=== PATIENT | male | born 1950 | race Caucasian/White ===

== ENCOUNTER → 2016-12-31 | Outpatient (CLI) | payer BC ==
[~2016-12-31] MED LIST: TORADOL10 MG PO; VICODIN 5/500 505 MG PO
== END | disposition home or self-care (01) ==
LOC: LAB 11:26
DX: E11.9 Type 2 diabetes mellitus without complications (principal)

== ENCOUNTER → 2017-05-11 | Outpatient (CLI) | payer BC, MEDICARE | END | disposition home or self-care (01) | LOC: LAB 09:30 | DX: E11.9 Type 2 diabetes mellitus without complications (principal) ==

== ENCOUNTER → 2017-09-30 | Outpatient (CLI) | payer BC ==
[2017-09-30 11:21] LABS: BASO # 0.1 10*3/uL (0.0-0.1); BASO % 0.6 % (0.0-1.0); EOS # 0.1 10*3/uL (0.0-0.4); EOS % 0.7 % (1.0-4.0); HEMATOCRIT 46.1 % (42.0-52.0); HEMOGLOBIN 15.7 g/dl (14.0-18.0); LYMPH # 3.2 10*3/uL (1.3-4.4); MEAN CELL VOLUME 92.8 fl (80.0-94.0); MEAN CORPUSCULAR HGB 31.6 pg (27.0-31.0); MEAN CORPUSCULAR HGB CONC 34.1 g/dl (33.0-37.0); MEAN PLATELET VOLUME 10.4 fl (9.6-12.3); MONO # 0.8 10*3/uL (0.1-1.0); MONO % 8.4 % (3.0-9.0); NEUT # 4.9 10*3/uL (2.3-7.9); NEUT % 54.1 % (47.0-73.0); PLATELET COUNT AUTOMATED 195 10*3/uL (130-400); RED BLOOD COUNT 4.97 10*6/uL (4.50-5.90); RED CELL DISTRI WIDTH 12.7 % (0-14.5)
[2017-09-30 11:36] LABS: ALBUMIN 3.8 gm/dl (3.1-4.5); ALKALINE PHOSPHATASE 75 U/L (45-117); BUN 15 mg/dl (7-24); CHLORIDE 101 mmol/L (98-107); CHOLESTEROL 209 mg/dL (<200); CREATININE 1.07 mg/dL (0.70-1.30); HDL CHOLESTEROL 46 mg/dl (40-60); LDL CHOLESTEROL 133 mg/dL (9-159); POTASSIUM 3.8 mmol/L (3.5-5.1); SGOT/AST 26 IU/L (3-35); SGPT/ALT 50 U/L (12-78); SODIUM 139 mmol/L (136-145); TOTAL PROTEIN 7.9 gm/dL (6.4-8.2); TRIGLYCERIDES 150 mg/dl (<150); VLDL CHOLESTEROL 30 mg/dL (6-40)
[2017-09-30 11:37] LABS: FREE T4 1.04 ng/dl (0.76-1.46)
[2017-10-02 10:07] LABS: MICRO ALBUMIN/CRE RATIO 11.7 (0.0-30.0)
== END | disposition home or self-care (01) ==
LOC: LAB 10:40
PROVIDERS: Internal Medicine
DX: I10 Essential (primary) hypertension (principal); E11.9 Type 2 diabetes mellitus without complications

== ENCOUNTER → 2018-08-19 | Day surgery (SDC) | payer BC ==
[2018-08-16 10:36] LABS: BASO % 0.4 % (0.0-1.0); EOS # 0.1 10*3/uL (0.0-0.4); EOS % 0.5 % (1.0-4.0); HEMATOCRIT 46.5 % (42.0-52.0); HEMOGLOBIN 15.7 g/dl (14.0-18.0); LYMPH # 2.7 10*3/uL (1.3-4.4); LYMPH % 28.7 % (27.0-41.0); MEAN CELL VOLUME 93.4 fl (80.0-94.0); MEAN CORPUSCULAR HGB 31.5 pg (27.0-31.0); MEAN CORPUSCULAR HGB CONC 33.8 g/dl (33.0-37.0); MEAN PLATELET VOLUME 10.7 fl (9.6-12.3); MONO # 0.8 10*3/uL (0.1-1.0); MONO % 8.4 % (3.0-9.0); NEUT # 5.8 10*3/uL (2.3-7.9); NEUT % 61.6 % (47.0-73.0); PLATELET COUNT AUTOMATED 208 10*3/uL (130-400); RED BLOOD COUNT 4.98 10*6/uL (4.50-5.90); WHITE BLOOD COUNT 9.3 10*3/uL (4.8-10.8)
[~2018-08-19] VITALS: Ht 175.2 cm; Wt 101.2 kg
[~2018-08-19] MED LIST changes: +ASPIRIN ADULT L81 M1 PO; +CARDIZEM CD240 M1 PO; +COLACE100 MG PO; +GLUCOPHAGE1000 MG PO; +JANUVIA100 MG PO; +JANUVIA25 MG PO; +LOSARTAN-HCTZ1 EAC1 PO; +MORPHINE SULFAT15 MG PO; +PERCOCET 5-3251 EACH PO; +Percocet 325 MG1 TAB PO; +VITAMIN D32000 UNI1 PO
--- NOTE | ~2018-08-19 | EKG ---
[place], [place] ELECTROCARDIOGRAM REPORT NAME: MARY JANE CLAYTON UNIT #: [id number] ROOM: DOCTOR: EPIPHANY DRAFT REPORT BIRTHDATE: [birth year] [facility] Test Date: 2018-08-16 Test Time: 10:17:20 Pat Name: MARY JANE CLAYTON Department: Room: Gender: Paint Line Operator: Suzi Guerrero : 1950 Requested By: ELEAZAR BERNSTEIN Order Number: [id number] Reading MD: Aquilino Steele MD Measurements Intervals [place] Rate: 67 P: 19 CO: 170 QRS: -18 QRSD: 102 T: 21 QT: 455 QTc: 481 Interpretive Statements Sinus rhythm Left ventricular hypertrophy Borderline prolonged QT interval Compared to ECG 08/01/2018 03:02:44 Left ventricular hypertrophy now present T-wave abnormality no longer present Electronically Signed On 08-16-2018 13:37:35 PDT by Aquilino Steele MD CM:EKGRPT:ELECTROCARDIOGRAM REPORT [id number] ELEAZAR BERNSTEIN MD EPIPHANY DRAFT REPORT ELEAZAR BERNSTEIN MD
[2018-08-19 12:44] VITALS: BP 106/61
[2018-08-19 14:09] VITALS: BP 120/71
[2018-08-19 14:17] VITALS: BP 123/76
[2018-08-19 14:26] VITALS: BP 136/80
[2018-08-19 14:42] VITALS: BP 128/75
== END | disposition home or self-care (01) ==
LOC: SDC 08-15 11:00
DX: K42.0 Umbilical hernia with obstruction, without gangrene (principal); E11.9 Type 2 diabetes mellitus without complications; I10 Essential (primary) hypertension; M54.5 Low back pain; G89.29 Other chronic pain; Z98.890 Other specified postprocedural states; Z82.49 Family history of ischemic heart disease and other diseases of the circulatory system; Z83.3 Family history of diabetes mellitus; Z79.84 Long term (current) use of oral hypoglycemic drugs; Z79.899 Other long term (current) drug therapy; Z88.8 Allergy status to other drugs, medicaments and biological substances; Z87.01 Personal history of pneumonia (recurrent); Z79.82 Long term (current) use of aspirin; E66.9 Obesity, unspecified; Z87.442 Personal history of urinary calculi; M19.90 Unspecified osteoarthritis, unspecified site; Z68.32 Body mass index [BMI] 32.0-32.9, adult; M81.0 Age-related osteoporosis without current pathological fracture; E78.00 Pure hypercholesterolemia, unspecified; Z82.0 Family history of epilepsy and other diseases of the nervous system

== ENCOUNTER → 2019-04-19 | Outpatient (CLI) | payer BC ==
[2019-04-19 12:10] LABS: CHOLESTEROL 208 mg/dL (<200); HDL CHOLESTEROL 48 mg/dl (40-60); LDL CHOLESTEROL 130 mg/dL (9-159); TRIGLYCERIDES 152 mg/dl (<150); VLDL CHOLESTEROL 30 mg/dL (6-40)
== END | disposition home or self-care (01) ==
LOC: LAB 11:10
PROVIDERS: Internal Medicine
DX: E11.9 Type 2 diabetes mellitus without complications (principal)

== ENCOUNTER → 2020-04-16 | Outpatient (CLI) | payer MEDICARE | END | disposition home or self-care (01) | LOC: COVID19 14:12 | PROVIDERS: ATTEND Internal Medicine Nephrology | DX: Z20.822 Contact with and (suspected) exposure to COVID-19 (principal) ==

== ENCOUNTER → 2020-09-11 | Outpatient (CLI) | payer BC, MEDICARE ==
[2020-09-11 10:10] LABS: BASO % 0.4 % (0.0-1.0); EOS # 0.1 10*3/uL (0.0-0.4); EOS % 0.6 % (1.0-4.0); HEMATOCRIT 43.8 % (42.0-52.0); LYMPH # 3.4 10*3/uL (1.3-4.4); LYMPH % 34.2 % (27.0-41.0); MEAN CELL VOLUME 90.9 fl (80.0-94.0); MEAN CORPUSCULAR HGB 31.5 pg (27.0-31.0); MEAN CORPUSCULAR HGB CONC 34.7 g/dl (33.0-37.0); MEAN PLATELET VOLUME 11.1 fl (9.6-12.3); MONO # 0.8 10*3/uL (0.1-1.0); MONO % 7.7 % (3.0-9.0); NEUT # 5.6 10*3/uL (2.3-7.9); NEUT % 56.6 % (47.0-73.0); PLATELET COUNT AUTOMATED 194 10*3/uL (130-400); RED BLOOD COUNT 4.82 10*6/uL (4.50-5.90); RED CELL DISTRI WIDTH 12.8 % (0-14.5); WHITE BLOOD COUNT 9.9 10*3/uL (4.8-10.8)
[2020-09-11 10:25] LABS: ALBUMIN 3.3 gm/dl (3.1-4.5); ALKALINE PHOSPHATASE 69 U/L (45-117); BUN 15 mg/dl (7-24); CHLORIDE 107 mmol/L (98-107); CHOLESTEROL 208 mg/dL (<200); CREATININE 1.07 mg/dL (0.70-1.30); LDL CHOLESTEROL 131 mg/dL (9-159); POTASSIUM 3.4 mmol/L (3.5-5.1); SGOT/AST 26 IU/L (3-35); SGPT/ALT 47 U/L (12-78); SODIUM 138 mmol/L (136-145); TOTAL PROTEIN 7.4 gm/dL (6.4-8.2); TRIGLYCERIDES 163 mg/dl (<150)
[2020-09-11 10:26] LABS: FREE T4 0.93 ng/dl (0.76-1.46)
[2020-09-11 12:28] LABS: VITAMIN D, 25-HYDROXY 23.4 ng/mL (30-100)
[2020-09-14 04:06] LABS: CREATININE,URINE 158.8 mg/dL (Not Estab.)
== END | disposition home or self-care (01) ==
LOC: LAB 09:33
PROVIDERS: ATTEND Internal Medicine
DX: E11.9 Type 2 diabetes mellitus without complications (principal); E78.5 Hyperlipidemia, unspecified; E55.9 Vitamin D deficiency, unspecified

== ENCOUNTER 2022-03-08 01:22 | Emergency (ER) | payer MEDICARE ==
[~2022-03-08] VITALS: Ht 175.2 cm; Wt 91.2 kg
[2022-03-08 02:00] LABS: BASO # 0.1 10*3/uL (0.0-0.1); BASO % 0.4 % (0.0-1.0); EOS # 0.1 10*3/uL (0.0-0.4); EOS % 0.4 % (1.0-4.0); HEMATOCRIT 48.4 % (42.0-52.0); LYMPH # 2.9 10*3/uL (1.3-4.4); LYMPH % 16.8 % (27.0-41.0); MEAN CELL VOLUME 92.9 fl (80.0-94.0); MEAN CORPUSCULAR HGB 32.2 pg (27.0-31.0); MEAN CORPUSCULAR HGB CONC 34.7 g/dl (33.0-37.0); MEAN PLATELET VOLUME 10.5 fl (9.6-12.3); MONO # 0.7 10*3/uL (0.1-1.0); MONO % 4.4 % (3.0-9.0); NEUT # 13.1 10*3/uL (2.3-7.9); NEUT % 77.6 % (47.0-73.0); PLATELET COUNT AUTOMATED 206 10*3/uL (130-400); RED BLOOD COUNT 5.21 10*6/uL (4.50-5.90); RED CELL DISTRI WIDTH 13.3 % (0-14.5); WHITE BLOOD COUNT 16.9 10*3/uL (4.8-10.8)
[2022-03-08 02:56] LABS: ALKALINE PHOSPHATASE 80 U/L (46-116); BUN 14 mg/dl (9-23); CHLORIDE 101 mmol/L (98-107); LIPASE 32 U/L (12-53); POTASSIUM 3.5 mmol/L (3.4-5.1); SGPT/ALT 40 U/L (10-49); SODIUM 137 mmol/L (136-145); TOTAL PROTEIN 7.7 gm/dL (6.0-8.0)
[2022-03-08 03:53] VITALS: BP 158/82
== END 2022-03-08 05:00 | disposition home or self-care (01) ==
LOC: ED 01:22
PROVIDERS: Emergency Medicine
DX: N13.2 Hydronephrosis with renal and ureteral calculous obstruction (principal); Z79.899 Other long term (current) drug therapy; Z79.82 Long term (current) use of aspirin; Z90.89 Acquired absence of other organs; Z98.890 Other specified postprocedural states

== ENCOUNTER → 2022-04-05 | Outpatient (CLI) | payer MEDICARE | END | disposition home or self-care (01) | LOC: CT 04:18 | PROVIDERS: ATTEND Urology | DX: N20.0 Calculus of kidney (principal); N28.1 Cyst of kidney, acquired; K76.0 Fatty (change of) liver, not elsewhere classified; I51.7 Cardiomegaly; Z96.0 Presence of urogenital implants; Z87.442 Personal history of urinary calculi ==

== ENCOUNTER → 2022-05-30 | Outpatient (CLI) | payer MEDICARE | END | disposition home or self-care (01) | LOC: LAB 03:00 | PROVIDERS: ATTEND Urology | DX: N20.0 Calculus of kidney (principal); R53.83 Other fatigue ==

== ENCOUNTER → 2022-05-31 | Outpatient (CLI) | payer MEDICARE ==
[2022-05-31 10:10] LABS: BASO # 0.1 10*3/uL (0.0-0.1); BASO % 0.6 % (0.0-1.0); EOS # 0.1 10*3/uL (0.0-0.4); EOS % 0.8 % (1.0-4.0); HEMATOCRIT 47.5 % (42.0-52.0); LYMPH # 2.8 10*3/uL (1.3-4.4); LYMPH % 36.1 % (27.0-41.0); MEAN CELL VOLUME 94.4 fl (80.0-94.0); MEAN CORPUSCULAR HGB 31.6 pg (27.0-31.0); MEAN CORPUSCULAR HGB CONC 33.5 g/dl (33.0-37.0); MEAN PLATELET VOLUME 10.7 fl (9.6-12.3); MONO # 0.6 10*3/uL (0.1-1.0); MONO % 7.8 % (3.0-9.0); NEUT # 4.3 10*3/uL (2.3-7.9); NEUT % 54.4 % (47.0-73.0); PLATELET COUNT AUTOMATED 186 10*3/uL (130-400); RED BLOOD COUNT 5.03 10*6/uL (4.50-5.90); RED CELL DISTRI WIDTH 13.3 % (0-14.5); WHITE BLOOD COUNT 7.8 10*3/uL (4.8-10.8)
[2022-05-31 10:13] LABS: BILIRUBIN Negative (Negative); BLOOD Negative (Negative); CLARITY Clear (Clear); COLOR Yellow (Yellow); GLUCOSE 3+ (Negative); KETONE Trace (Negative); LEUKO ESTERASE Negative (Negative); NITRITE Negative (Negative); PH 5.5 (4.5-8.0); SPECIFIC GRAVITY >= 1.030 (1.001-1.030)
[2022-05-31 10:29] LABS: ALKALINE PHOSPHATASE 68 U/L (46-116); BUN 15 mg/dl (9-23); CHLORIDE 104 mmol/L (98-107); POTASSIUM 3.6 mmol/L (3.4-5.1); SGPT/ALT 29 U/L (10-49); T3 UPTAKE 27.9 % (22.4-36.7); THYROXINE (T4) TOTAL 6.7 ug/dl (4.5-10.9); TOTAL PROTEIN 7.3 gm/dL (6.0-8.0)
[2022-05-31 11:05] LABS: WBC 0-2 wbc/hpf (0-5)
[2022-05-31 11:06] LABS: BACTERIA TRACE; MUCOUS TRACE
== END | disposition home or self-care (01) ==
LOC: LAB 09:28
PROVIDERS: ATTEND Urology
DX: N20.0 Calculus of kidney (principal); R31.9 Hematuria, unspecified; R53.83 Other fatigue; Z12.5 Encounter for screening for malignant neoplasm of prostate

== ENCOUNTER → 2022-06-16 | Outpatient (CLI) | payer MEDICARE | END | disposition home or self-care (01) | LOC: US 12:59 | PROVIDERS: ATTEND Urology | DX: N20.0 Calculus of kidney (principal); N13.39 Other hydronephrosis; N28.1 Cyst of kidney, acquired ==

== ENCOUNTER → 2023-11-19 | Outpatient (CLI) | payer MEDICARE | END | disposition home or self-care (01) | LOC: RAD 09:40 | PROVIDERS: ATTEND Internal Medicine | DX: C43.9 Malignant melanoma of skin, unspecified (principal); R91.1 Solitary pulmonary nodule; I10 Essential (primary) hypertension; F17.210 Nicotine dependence, cigarettes, uncomplicated ==

== ENCOUNTER → 2023-11-30 | Outpatient (CLI) | payer MEDICARE ==
[~2023-11-30] MED LIST changes: +IOHEXOL 300 MG/ML 100 ML VIAL IV ONE
== END | disposition home or self-care (01) ==
LOC: LAB 00:32 → CT 09:00 → LAB 09:00
PROVIDERS: ATTEND Internal Medicine
DX: R91.8 Other nonspecific abnormal finding of lung field (principal)

== ENCOUNTER → 2024-08-20 | Outpatient (CLI) | payer MEDICARE ==
[~2024-08-20] MED LIST changes: -IOHEXOL 300 MG/ML 100 ML VIAL IV ONE
== END | disposition home or self-care (01) ==
LOC: US 00:56
PROVIDERS: ATTEND Internal Medicine
DX: N20.0 Calculus of kidney (principal); N28.1 Cyst of kidney, acquired; Z87.442 Personal history of urinary calculi

== ENCOUNTER → 2024-09-29 | Outpatient (CLI) | payer MEDICARE ==
[2024-09-29 09:47] LABS: BASO % 0.3 % (0.0-1.0); EOS # 0.1 10*3/uL (0.0-0.4); EOS % 0.7 % (1.0-4.0); HEMATOCRIT 49.4 % (42.0-52.0); MEAN CELL VOLUME 95.4 fl (80.0-94.0); MEAN CORPUSCULAR HGB 32.2 pg (27.0-31.0); MEAN CORPUSCULAR HGB CONC 33.8 g/dl (33.0-37.0); MEAN PLATELET VOLUME 10.2 fl (9.6-12.3); MONO # 0.7 10*3/uL (0.1-1.0); NEUT # 5.2 10*3/uL (2.3-7.9); NEUT % 58.9 % (47.0-73.0); PLATELET COUNT AUTOMATED 163 10*3/uL (130-400); RED BLOOD COUNT 5.18 10*6/uL (4.50-5.90); RED CELL DISTRI WIDTH 13.4 % (0-14.5); WHITE BLOOD COUNT 8.8 10*3/uL (4.8-10.8)
[2024-09-29 10:28] LABS: ALKALINE PHOSPHATASE 67 U/L (46-116); BUN 20 mg/dl (9-23); CHLORIDE 103 mmol/L (98-107); POTASSIUM 3.5 mmol/L (3.4-5.1); SGPT/ALT 20 U/L (5-49)
[2024-09-29 10:30] LABS: VITAMIN D, 25-HYDROXY 30.4 ng/mL (30-100)
[2024-09-29 13:51] LABS: BILIRUBIN Negative (Negative); BLOOD Negative (Negative); CLARITY Clear (Clear); COLOR Yellow (Yellow); GLUCOSE 3+ (Negative); KETONE Trace (Negative); LEUKO ESTERASE Negative (Negative); NITRITE Negative (Negative); SPECIFIC GRAVITY >= 1.030 (1.001-1.030); UROBILINOGEN 0.2 E.U./dl (0.0-1.0)
[2024-09-29 14:19] LABS: BACTERIA 1+; EPITHELIAL CELLS 0-2; MUCOUS 1+; WBC 0-2 wbc/hpf (0-5)
== END | disposition home or self-care (01) ==
LOC: LAB 09:19
PROVIDERS: ATTEND Internal Medicine Nephrology
DX: E11.9 Type 2 diabetes mellitus without complications (principal); E55.9 Vitamin D deficiency, unspecified; N20.0 Calculus of kidney; Z12.5 Encounter for screening for malignant neoplasm of prostate; Z11.59 Encounter for screening for other viral diseases